=== PATIENT | male | born 1930 | race Caucasian/White ===

== ENCOUNTER 2016-07-29 08:50 | Day surgery (SDC) | payer MEDICARE ==
[~2016-07-29 08:50] MED LIST: AMPICILLIN SODIUM 1 G in NS 0.9% (MINI-BAG PLUS) 50 ML IV ONE; LACTATED RINGERS 1,000 ML IV SCH
[2016-07-29] MEDS ORDERED: IV START KIT ONE (09:36)
[2016-07-29] MEDS ORDERED: LACTATED RINGERS 1,000 ML ONE (09:36)
[2016-07-29] MEDS ORDERED: PROPOFOL 20 ML IV ONE (10:52)
[2016-07-29 15:26] LABS: HELICOBACTER PYLORII DETECTION NEGATIVE (NEGATIVE)
--- NOTE | 2016-08-04 10:29 | SURGPATH ---
[facility] [address] [place] [id number] Patient Name: AARON RAYO MR#: [id number] : 1930 Gender: M Specimen #: [id number] Collected: 07/29/2016 Received: 08/03/2016 Reported: 08/04/2016 Submitting Phys: OBINNA ROBIN Copy To Phys: ODESSA ESPINOZA [facility] Clinical History / Pre-Operative Diagnosis: Dysphagia, heartburn, rule out gastritis Specimen Source / Surgical Procedure Performed: Antral biopsy Interpretation: GASTRIC ANTRUM, BIOPSY: - NO PATHOLOGIC DIAGNOSIS Electronically Signed Out Jr Domingo M.D. Gross Description: The specimen is received in formalin labeled with the patient's name and "antrum". The specimen consists of two fragments of duong soft tissue each is 0.2-0.3 cm in greatest dimension. Submitted in toto in one cassette DUNIA Lee Microscopic Description: Levels reveal gastric mucosa with an unremarkable architecture and few chronic inflammatory cells in the lamina propria. Ulceration, acute inflammation, intestinal metaplasia, Helicobacter organisms, dysplasia and malignancy are not present. 1: [id number] R13.10
== END 2016-07-29 12:05 | disposition home or self-care (01) ==
LOC: SDC 08:50
PROVIDERS: ATTEND Internal Medicine Gastroenterology
PROC: 0D748ZZ Dilation of Esophagogastric Junction, Via Natural or Artificial Opening Endoscopic (ICD-10-PCS; principal; 2016-07-29)
PROC: 0DB68ZX Excision of Stomach, Via Natural or Artificial Opening Endoscopic, Diagnostic (ICD-10-PCS; 2016-07-29)
DX: Q39.4 Esophageal web (principal); K29.70 Gastritis, unspecified, without bleeding; K29.80 Duodenitis without bleeding; I25.10 Atherosclerotic heart disease of native coronary artery without angina pectoris; I10 Essential (primary) hypertension; E78.5 Hyperlipidemia, unspecified; E03.9 Hypothyroidism, unspecified; Z79.01 Long term (current) use of anticoagulants; Z79.82 Long term (current) use of aspirin; Z95.2 Presence of prosthetic heart valve; Z95.1 Presence of aortocoronary bypass graft
CPT/HCPCS: 87081; 43249; 43239; J7120; J0290